=== PATIENT | male | born 1995 | race African-American/Black ===

== ENCOUNTER 2018-09-15 22:03 | Emergency (ER) | payer SELFPAY ==
[~2018-09-15] VITALS: Ht 185.4 cm; Wt 70.0 kg
[2018-09-15] MEDS ORDERED: HYDROCODONE/ACETAMINOPHEN 5/325MG TABLET PO STA (23:28)
[2018-09-15] MEDS ORDERED: AMOXICILLIN/POTASSIUM CLAVULANATE 875/125MG TAB PO ONE (23:45)
[2018-09-16 02:17] VITALS: BP 132/82
== END 2018-09-16 02:18 | disposition home or self-care (01) ==
LOC: ER 23:57
DX: S01.511A Laceration without foreign body of lip, initial encounter (principal); R51 Headache; R68.84 Jaw pain; Y04.2XXA Assault by strike against or bumped into by another person, initial encounter; Y93.89 Activity, other specified; Y92.89 Other specified places as the place of occurrence of the external cause
CPT/HCPCS: 70486; 99284